=== PATIENT | female | born 1995 | race Caucasian/White ===

== ENCOUNTER 2018-12-05 11:00 | Outpatient (CLI) | payer MEDICAID, OTHER ==
[~2018-12-05] VITALS: Ht 154.9 cm; Wt 48.6 kg
[2018-12-05 11:35] VITALS: Ht 154.9 cm; Wt 48.6 kg
--- NOTE | 2018-12-05 13:13 | PN ---
Triage Information Date/Time Reason for visit: Weeks of Gestation 34.1 /Para 2/1 Assessment/Plan presents for r/o iugr efw 2068g 17.5% s/d 2-2.3 vitals stable counseled on repeat efw in 2-4 w with s/d ratio, need for delivery at >/= 37 w if isolated iugr with normal dopplers bpp 12/08 HOMERO BOOTH MD Dec 05, 2018 13:13
--- NOTE | 2018-12-05 13:52 | TRIAGE ---
OB Triage Datetime Report Generated by CPN: 12/05/2018 13:52 Datetime: 12/05/2018 11:10 Assessment Type: Triage Maternal Assessment Level of Consciousness: Keenly Alert, Responsive DTR's/Clonus: DTRs 2+; No Clonus Headache: Denies Blurred Vision: No Respiratory Effort: Unlabored; Regular Rhythm; Equal Expansion Breath Sounds, Left: Clear and Equal Breath Sounds, Right: Clear and Equal Nausea/Vomiting: Denies RUQ Epigastric Pain: Denies Lower Extremities Edema: None Degree: None Upper Extremities Edema: None Degree: None Facial Edema: None Fall Risk Assessment History of Falling: (0) No Secondary Diagnosis: (0) No Ambulatory Aid: (0) Bedrest/Nurse Assist IV Therapy: (0) No Gait: (0) Normal/Bedrest/Immobile Mental Status: (0) Oriented to Own Ability Fall Score: 0 Fall Risk Score Definition: No Risk: No action required Datetime: 12/05/2018 11:04 EGA: 33.6 Datetime: 12/05/2018 10:47 Time of Arrival: 12/05/2018 10:47 Arrived By: Ambulatory Arrived From: Home Chief Complaint: R/O IUGR Movement: Present Contractions: Denies/Absent Rupture of Membranes: Denies Vaginal Discharge: Denies Recent Sexual Intercouse: Denies Abdominal Trauma: Not Applicable Additional Patient Complaints: NONE Time Provider Notified: 12/05/2018 11:38 Provider Notified: GULSHAN Initial Plan: [facility]
== END 2018-12-05 13:10 | disposition home or self-care (01) ==
LOC: OBT 11:00 → L-D 11:02 → OBT 13:10
PROVIDERS: ATTEND Obstetrics & Gynecology
DX: O36.5930 Maternal care for other known or suspected poor fetal growth, third trimester, not applicable or unspecified (principal); Z3A.34 34 weeks gestation of pregnancy
CPT/HCPCS: 76815; 76818; 76820; Z7500; G0463

== ENCOUNTER 2018-12-21 17:39 | Inpatient (IN) | payer OTHER ==
[~2018-12-21] VITALS: Ht 157.5 cm; Wt 50.0 kg
[2018-12-21] MEDS ORDERED: LACTATED RINGER'S 1,000 ML IV PRN (18:31)
[2018-12-21] MEDS ORDERED: CARBOPROST 250 MCG/ML VIAL IM PRN (19:00)
[2018-12-21] MEDS ORDERED: BUTORPHANOL 2 MG INJ IV PRN (19:00)
[2018-12-21] MEDS ORDERED: OXYTOCIN 30 UNITS/LR 500 ML IV PRN (19:00)
[2018-12-21] MEDS ORDERED: LIDOCAINE 1% (MPF) 30 ML INJ INJ PRN (19:00)
[2018-12-21] MEDS ORDERED: MISOPROSTOL 200 MCG TAB PR PRN (19:00)
[2018-12-21] MEDS ORDERED: METHYLERGONOVINE 0.2 MG INJ IM PRN (19:00)
[2018-12-21] MEDS ORDERED: IBUPROFEN 600 MG TAB PO PRN (19:00)
[2018-12-21] MEDS ORDERED: OXYTOCIN 30 UNITS/LR 500 ML IV SCH ×3 (19:00→21:30)
[2018-12-21 19:29] VITALS: Ht 157.5 cm; Wt 50.0 kg
[2018-12-21 19:30] VITALS: BP 121/69; PULSE 84; RESP 16
[2018-12-21] MEDS: LACTATED RINGER'S 1,000 ML IV SCH (20:14)
[2018-12-22] VITALS (7 sets, daily range): BP systolic 104–130; BP diastolic 67–79; PULSE 53–76; RESP 16–18
[2018-12-22] MEDS: LACTATED RINGER'S 1,000 ML IV SCH (02:28)
[2018-12-22] MEDS ORDERED: ROPIVACAINE 0.2% 100 ML ONE (07:36)
[2018-12-22] MEDS ORDERED: FENTAnyl 50 MCG/ML VIAL ONE (07:37)
[2018-12-22] MEDS ORDERED: ONDANSETRON 4 MG INJ IV PRN (08:00)
[2018-12-22] MEDS ORDERED: NALOXONE (0.4 MG/ML) INJ IV PRN (08:00)
[2018-12-22] MEDS ORDERED: DIPHENHYDRAMINE 50 MG INJ IV PRN (08:00)
[2018-12-22] MEDS ORDERED: FENTAnyl 2MCG/ML-ROPIV 0.2% 100 ML BAG EPI SCH (08:00)
[2018-12-22] MEDS ORDERED: OXYTOCIN 30 UNITS/LR 500 ML IV SCH (12:54)
[2018-12-22] MEDS ORDERED: WITCH HAZEL/GLYCERIN PAD PR PRN (13:00)
[2018-12-22] MEDS ORDERED: CARBOPROST 250 MCG/ML VIAL IM PRN (13:00)
[2018-12-22] MEDS ORDERED: MISOPROSTOL 200 MCG TAB PR PRN (13:00)
[2018-12-22] MEDS ORDERED: LANOLIN 7 GM TUBE TOP PRN (13:00)
[2018-12-22] MEDS ORDERED: ZOLPIDEM 5 MG TAB PO PRN (13:00)
[2018-12-22] MEDS ORDERED: NACL 0.9% 3 ML SYG IV SCH (13:00)
[2018-12-22] MEDS ORDERED: SENNA/DOCUSATE NA (8.6MG/50MG) TAB PO PRN (13:00)
[2018-12-22] MEDS ORDERED: METHYLERGONOVINE 0.2 MG INJ IM PRN (13:00)
[2018-12-22] MEDS ORDERED: OXYTOCIN 30 UNITS/LR 500 ML IV PRN (13:00)
[2018-12-22] MEDS ORDERED: OXYCODONE/ASPIRIN (4.88/325) TAB PO PRN (13:00)
[2018-12-22] MEDS: IBUPROFEN 600 MG TAB PO SCH ×3 (15:18→23:58)
[2018-12-22] MEDS: SENNA/DOCUSATE NA (8.6MG/50MG) TAB PO SCH (21:03)
[2018-12-23] VITALS: BP 127/77; PULSE 59; RESP 18
[2018-12-23 03:55] VITALS: BP 131/69; PULSE 61; RESP 18
[2018-12-23] MEDS: IBUPROFEN 600 MG TAB PO SCH ×3 (06:00→18:00)
[2018-12-23 07:52] VITALS: BP 109/56; PULSE 57; RESP 16
[2018-12-23] MEDS: SENNA/DOCUSATE NA (8.6MG/50MG) TAB PO SCH ×2 (09:00→21:52)
[2018-12-23 16:00] VITALS: BP 125/89; PULSE 71; RESP 18
[2018-12-23 19:40] VITALS: BP 120/83; PULSE 63; RESP 18
[2018-12-24] MEDS ORDERED: LANOLIN HPA 1 PKT TOP PRN (00:50)
[2018-12-24 03:40] VITALS: BP 126/66; PULSE 84; RESP 19
[2018-12-24] MEDS: IBUPROFEN 600 MG TAB PO SCH ×3 (05:51→11:56)
[2018-12-24] MEDS ORDERED: DIPHTH/TET/ACEL PERTUSS (ADULT) 0.5 ML VIAL IM* ONE (09:00)
[2018-12-24] MEDS: SENNA/DOCUSATE NA (8.6MG/50MG) TAB PO SCH (09:25)
== END 2018-12-24 14:30 | disposition home or self-care (01) | DRG 807 ==
LOC: L-D 17:39 → PP1 12-22 16:18 → EDSTATUS 01-17 17:32
PROVIDERS: ADMIT Obstetrics & Gynecology; ATTEND Obstetrics & Gynecology
PROC: 10E0XZZ Delivery of Products of Conception, External Approach (ICD-10-PCS; principal; 2018-12-22)
DX: O80 Encounter for full-term uncomplicated delivery (principal); Z37.0 Single live birth; Z3A.39 39 weeks gestation of pregnancy
CPT/HCPCS: 62322; 76815; 85025; 85610; 85730; 86592; 86762; 86850; 86900; 86901; 87340; 90715; 99464; J0595; J2590; J2795; J3010; J7120